=== PATIENT | male | born 1935 | race Caucasian/White ===

== ENCOUNTER 2018-06-25 04:31 | Inpatient (IN) ==
--- NOTE | 2018-06-25 05:23 | ED ---
HPI General Chief Complaint: Respiratory Symptoms Stated Complaint: Cardiac Time Seen by Provider: 06/25/18 05:22 Source: patient Mode of arrival: ambulatory Limitations: no limitations History of Present Illness MD Complaint: Reports shortness of breath; Denies pain with inspiration and chest pain Onset (ago): week(s) (1) Context: Reports recent travel; Denies recent illness, occurred during exertion , choking/aspiration, medication noncompliance, allergen exposure, smoke/fume exposure, anxiety, trauma/injury, elevated blood glucose and CO exposure Severity: moderate Consistency/Duration: constant Relieving factors: nothing Exacerbating factors: lying flat, exertion, movement and coughing Known history of: Denies congestive heart failure, diabetes, recurrent pneumonia , aspiration pneumonia, DVT and IVDU Related Data Home Medications Medication Instructions Recorded Confirmed amlodipine 5 mg PO DAILY 06/25/18 06/25/18 apixaban [Eliquis] 2.5 mg PO BID 06/25/18 06/25/18 atorvastatin 10 mg PO DAILY 06/25/18 06/25/18 coenzyme Q10 [CoQ-10] 100 mg PO DAILY 06/25/18 06/25/18 finasteride 5 mg PO DAILY 06/25/18 06/25/18 metoprolol tartrate 25 mg PO BID 06/25/18 06/25/18 omeprazole 20 mg PO DAILY 06/25/18 06/25/18 terazosin 2 mg PO DAILY 06/25/18 06/25/18 trazodone 50 mg PO DAILY 06/25/18 06/25/18 Allergies Allergy/AdvReac Type Severity Reaction Status Date / Time No Known Allergies Allergy Verified 06/25/18 04:45 [facility] Medical History Medical History Afib (Acute) HTN (hypertension) (Acute) Heart attack (Acute) Hypercholesteremia (Acute) Surgical History Surgical History H/O aortic valve replacement (Acute) H/O kidney removal (Acute) History of mitral valve repair (Acute) S/P CABG x 2 (Acute) Social History Social History Substance History: No History of Abuse Second Hand Smoke Exposure: Yes Smoking Status: Never smoker How Often Do You Have a Drink Containing Alcohol: Never Recent Travel in [facility] within the Last 8 Weeks: No Recent Out of Country Travel within the Last 8 Weeks: No Immunization History Tetanus Immunization: <5 Years Course Initial Documented Vital Signs Temperature 99.1 F 06/25/18 04:45 Pulse Rate 48 L 06/25/18 04:45 Respiratory Rate 18 06/25/18 04:45 Blood Pressure 147/67 H 06/25/18 04:45 Pulse Oximetry 94 L 06/25/18 04:45 Last Documented Vital Signs Temperature 98.6 F 06/25/18 07:00 Pulse Rate 41 L 06/25/18 07:00 Respiratory Rate 18 06/25/18 07:00 Blood Pressure 186/79 H 06/25/18 07:00 Pulse Oximetry 95 06/25/18 07:00 Sign Out Sign Out Data: Patient Sign Out occurred on 06/25/18 at 06:14. Patient's care was discussed, and care was transferred from Perla Elizabeth MD to Jacob Sy MD. Sign Out Comment: Patient with history of atrial fibrillation recent evaluation by his sheet folder Dr. Mclean with reported negative cardiac workup including stress test February 2018 presents with progressively worsening exertional and rest dyspnea after recent long distance travel to [place]. Patient with history of atrial fibrillation identified to have regular bradycardic rhythm on metoprolol. Last updated by Perla Elizabeth MD at 06/25/18 05:56 Post-Handoff Eval: The patient is a 82-year-old male who was initially seen by Dr. Eilzabeth. The patient notes increasing shortness of breath over the last 48 hours, exertional dyspnea and orthopnea. The patient's chest x-ray reveals pulmonary edema versus right lower lobe infiltrate, troponin was elevated at 0.42, BNP was only elevated at 158, but patient has peripheral pitting edema with orthopnea and exertional dyspnea. The patient also has a history of previous CABG and valve repair. He is followed by his primary physician, Dr. Caldwell, and his sheet folder, Dr. Pugh. The patient was administer Lasix 40 mg intravenously. I doubt pulmonary embolism, the patient is currently anticoagulated with Eliquis for history of A. fib. However, patient had elevated troponin to 0.42 with minimally elevated BNP and recent travel, therefore, CT pulmonary angiogram was performed, no obvious central PE. Patient will require cardiac consultation. Heparin was not instituted as patient is currently anticoagulated with Eliquis, may benefit from evaluation by his sheet folder and gentle diuresis. As the patient's primary [facility] Dr[facility] I discussed the patient with Dr. Shah who agrees with admission. Medical Decision Making MDM Narrative Medical Screen Exam Complete: Yes Emergency Medical Condition: Yes Lab Data Result diagrams: 06/25/18 06:10 06/25/18 06:10 Lab Results 06/25/18 06/25/18 06/25/18 Range/Units 06:10 06:10 06:10 WBC 9.4 (4.0-11.0) th/mm3 RBC 4.24 L (4.50-5.90) mil/mm3 Hgb 13.0 (13.0-17.0) gm/dL Hct 38.9 L (39.0-51.0) % MCV 91.8 (80.0-100.0) fL MCH 30.8 (27.0-34.0) pg MCHC 33.5 (32.0-36.0) % RDW 14.6 (11.6-17.2) % Plt Count 130 L (150-450) th/mm3 MPV 9.3 (7.0-11.0) fL Neut % (Auto) 86.5 H (16.0-70.0) % Lymph % (Auto) 4.8 L (9.0-44.0) % Griggs % (Auto) 7.8 (0.0-8.0) % Eos % (Auto) 0.6 (0.0-4.0) % Baso % (Auto) 0.3 (0.0-2.0) % Neut # (Auto) 8.1 H (1.8-7.7) th/mm3 Lymph # (Auto) 0.4 L (1.0-4.8) th/mm3 Griggs # (Auto) 0.7 (0.0-0.9) th/mm3 Eos # (Auto) 0.1 (0.0-0.4) th/mm3 Baso # (Auto) 0.0 (0.0-0.2) th/mm3 WBC Differential . Differential Comment Auto diff final Sodium 141 (136-145) meq/L Potassium 4.0 (3.5-5.1) meq/L Chloride 109 H (98-107) meq/L Carbon Dioxide 22.3 (21.0-32.0) meq/L Anion Gap 10 (5-15) meq/L BUN 33 H (7-18) mg/dL Creatinine 1.59 H (0.60-1.30) mg/dL Estimated GFR 42 L (>89) mL/min Random Glucose 126 H (74-106) mg/dL Calcium 8.2 L (8.5-10.1) mg/dL Total Bilirubin 0.8 (0.2-1.0) mg/dL AST 45 H (15-37) U/L ALT 46 (12-78) U/L Alkaline Phosphatase 110 (45-117) U/L Troponin I 0.42 H (0.02-0.05) ng/mL B-Natriuretic Peptide 158 H (0-100) pg/mL Total Protein 7.1 (6.4-8.2) g/dL Albumin 3.8 (3.4-5.0) g/dL Imaging Data Radiologist's impression: Chest X-Ray 06/25/18 06:01 CONCLUSION: Right base consolidation or atelectasis. Chest CTA 06/25/18 08:10 CONCLUSION: 1. Negative for central pulmonary emboli 2. Mild compensated cardiomegaly with extensive coronary and aortic valvular calcifications 3. 1 cm nodule left midlung, nonspecific at this point. Follow-up CT scan in 3- 6 months would be of benefit to confirm Discharge Plan Discharge Disposition Patient Disposition: ED Admit(ED Internal Use Only) Discharge Condition Condition: Stable Discharge Order Discharge Orders: ED Use Only Admit Order (Routine); Ordered 06/25/18 Ordered By: Jacob Sy Discharge Details Diagnosis: Non-ST elevation HI (NSTEMI), CHF exacerbation Physicians Team ED Provider: Jacob Sy Primary Care Provider: Celestine Caldwell Attending Provider: Corina Shah Status ED Status: Admitted Patient
[2018-06-25 06:23] LABS: Baso % (Auto) 0.3 % (0.0-2.0); Eos # (Auto) 0.1 th/mm3 (0.0-0.4); Eos % (Auto) 0.6 % (0.0-4.0); Hematocrit 38.9 % (39.0-51.0); Lymph # (Auto) 0.4 th/mm3 (1.0-4.8); Lymph % (Auto) 4.8 % (9.0-44.0); Mean Corpuscular HGB Conc 33.5 % (32.0-36.0); Mean Corpuscular Hemoglobin 30.8 pg (27.0-34.0); Mean Corpuscular Volume 91.8 fL (80.0-100.0); Mean Platelet Volume 9.3 fL (7.0-11.0); Mono # (Auto) 0.7 th/mm3 (0.0-0.9); Mono % (Auto) 7.8 % (0.0-8.0); Neut # (Auto) 8.1 th/mm3 (1.8-7.7); Neut % (Auto) 86.5 % (16.0-70.0); Platelet Count 130 th/mm3 (150-450); Red Blood Count 4.24 mil/mm3 (4.50-5.90); Red Cell Distribution Width 14.6 % (11.6-17.2); White Blood Count 9.4 th/mm3 (4.0-11.0)
[2018-06-25 06:35] LABS: Albumin 3.8 g/dL (3.4-5.0); Anion Gap 10 meq/L (5-15); Aspartate Aminotransferase 45 U/L (15-37); Blood Urea Nitrogen 33 mg/dL (7-18); Calcium 8.2 mg/dL (8.5-10.1); Carbon Dioxide 22.3 meq/L (21.0-32.0); Chloride 109 meq/L (98-107); Glomerular Filtration Rate 42 mL/min (>89); Glucose,Random 126 mg/dL (74-106); Sodium 141 meq/L (136-145)
[2018-06-25 06:40] LABS: Alanine Aminotransferase 46 U/L (12-78); Alkaline Phosphatase 110 U/L (45-117); Total Protein 7.1 g/dL (6.4-8.2); Troponin I 0.42 ng/mL (0.02-0.05)
--- NOTE | 2018-06-25 07:04 | XR ---
EXAM DATE: 06/25/2018 6:20 AM EST AGE/SEX: 82 years / Male INDICATIONS: CHF. Patient states frequent dizzy spells. CLINICAL DATA: This is the patient's initial encounter. Patient reports that signs and symptoms have been present for 2 days and indicates a pain score of 0/10. MEDICAL/SURGICAL HISTORY: Congestive heart failure. CABG. COMPARISON: No prior exams available for comparison. FINDINGS: The patient is status post sternotomy. There are prosthetic valves in place. This increased density a t the right base. The left lung is clear. CONCLUSION: Right base consolidation or atelectasis. Electronically signed by: Dany Motta MD Board Certified Radiologist 06/25/2018 7:02 AM EST
[2018-06-25] MEDS ORDERED: Azithromycin Inj 500 MG in Sodium Chlor 0.9% Inj 250 ML IV.SIG ONE (07:05)
--- NOTE | 2018-06-25 09:04 | CT ---
EXAM DATE: 06/25/2018 8:57 AM EST AGE/SEX: 82 years / Male INDICATIONS: Short of breath. CLINICAL DATA: This is the patient's initial encounter. Patient reports that signs and symptoms have been present for 1 day and indicates a pain score of 0/10. MEDICAL/SURGICAL HISTORY: Hypertension. CABG. Nephrectomy, right. aortic valve replacement, mitral valve replacement RADIATION DOSE: 17.46 CTDI (mGy) COMPARISON: No prior exams available for comparison. TECHNIQUE: Volumetric scanning was performed using a multi-row detector CT scanner during bolus infu mariel of 50 ml Omnipaque 350 (iohexol) nonionic water-soluble contrast as a single exam dose. The pro a was post processed with a variety of visualization algorithms including full volume maximum intensi ty projection and sliding thin slab reformation. Using automated exposure control and adjustment of t he mA and/or kV according to patient size, radiation dose was kept as low as reasonably achievable to obtain optimal diagnostic quality images. DICOM format image data is available electronically for r eview and comparison. FINDINGS: Pulmonary Arteries: No filling defects are seen in the pulmonary arteries out to the subsegmental ve ssels. The left and right pulmonary arteries are normal in diameter. Small 1 cm nodule is seen in th e left upper lobe surrounded by what appears to be inflammatory changes suggesting this is more infla mmatory than neoplastic. Patient does have history of a right nephrectomy. No other suspicious lung nodules are seen. Trace effusion on the left. Mediastinum: There is no axillary or mediastinal adenopathy. Extensive aortic valvular calcification s and coronary artery calcifications are noted. There is mild compensated cardiomegaly. Multiple small gallstones are seen in a benign-appearing gallbladder. CONCLUSION: 1. Negative for central pulmonary emboli 2. Mild compensated cardiomegaly with extensive coronary and aortic valvular calcifications 3. 1 cm nodule left midlung, nonspecific at this point. Follow-up CT scan in 3-6 months would be of benefit to confirm Electronically signed by: Cuate Manuel MD Board Certified Radiologist 06/25/2018 9:02 AM EST
--- NOTE | 2018-06-25 09:46 | ECG ---
Date Performed: 06/25/2018 Time Performed: 05:09:46 PTAGE: 82 years EKG: PROBABLE AV JUNCTIONAL RHYTHM MARKED LEFT AXIS DEVIATION RIGHT BUNDLE BRANCH BLOCK VOLTAGE CRITERIA FOR LVH MODERATE T-WAVE ABNORMALITY, CONSIDER LATERAL ISCHEMIA ABNORMAL ECG NO PREVIOUS TRACING DOCTOR: Morro Shaw Interpretating Date/Time 06/25/2018 09:45:34
--- NOTE | 2018-06-25 11:10 | P.HPIM ---
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 Patient says he had nuclear stress test approx one month ago which was negative. He presents with complaints of shortness of breath and chest tightness that occurs occasionally over the past couple of months. 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 He does not have any symptoms while at rest. He follow up with Dr. Mclean. He denies any palpitation or active chest pain. No fevers, or chills , no cough, no abd pain or diarrhea. Fam hx no significant family hx as per patient. Inpatient Certification: I certify that the inpatient services were ordered in accordance with Medicare regulations governing the order. This includes certification that hospital inpatient services are reasonable and necessary and in the case of services not specified as inpatient-only under 42 CFR 419.22(n), that they are appropriately provided as inpatient services in accordance to with the 2-midnight benchmark under 43 CFR 412.3(e) Estimated Total Length of Stay (Days): 2 Plans for Post Hospital Care: Home Review of Systems All other systems reviewed negative except as stated in HPI PMFSH - History History Provided By: Patient - Medical History Medical History: Medical History (Last Updated 06/25/18 @ 04:49 by Kendy Connolly) Afib HTN (hypertension) Heart attack Hypercholesteremia - Surgical History Surgical History: Surgical History (Last Updated 06/25/18 @ 04:49 by Kendy Connolly) H/O aortic valve replacement H/O kidney removal History of mitral valve repair S/P CABG x 2 - Tobacco History Second Hand Smoke Exposure: Yes Smoking Status: Never smoker - Alcohol History How Often Do You Have a Drink Containing Alcohol: Never - Substance Use History Substance History: No History of Abuse - Travel History Recent Travel in the [place] Within the Last 8 Weeks: No Recent Travel Out of the Country Within the Last 8 Weeks: No - Immunization History Tetanus Immunization: <5 Years Medications and Allergies Active Medications: Active Medications Amlodipine Besylate (Norvasc) 5 mg PO DAILY JEANETTE Apixaban (Eliquis) 2.5 mg PO BID JEANETTE Aspirin (Aspirin Chew) 81 mg PO DAILY [facility] Atorvastatin Calcium (Lipitor) 40 mg PO HS JEANETTE Finasteride (Proscar) 5 mg PO DAILY EJANETTE Pantoprazole Sodium (Protonix) 20 mg PO DAILY JEANETTE Terazosin HCl (Hytrin) 2 mg PO HS JEANETTE Trazodone HCl (Desyrel) 50 mg PO HS [facility] Allergies Allergy/AdvReac Type Severity Reaction Status Date / Time No Known Allergies Allergy Verified 06/25/18 04:45 Home Medications Medication Instructions Recorded Confirmed Type amlodipine 5 mg PO DAILY 06/25/18 06/25/18 History apixaban [Eliquis] 2.5 mg PO BID 06/25/18 06/25/18 History atorvastatin 10 mg PO DAILY 06/25/18 06/25/18 History coenzyme Q10 [CoQ-10] 100 mg PO DAILY 06/25/18 06/25/18 History finasteride 5 mg PO DAILY 06/25/18 06/25/18 History metoprolol tartrate 25 mg PO BID 06/25/18 06/25/18 History omeprazole 20 mg PO DAILY 06/25/18 06/25/18 History terazosin 2 mg PO DAILY 06/25/18 06/25/18 History trazodone 50 mg PO DAILY 06/25/18 06/25/18 History Exam Vital signs: Vital Signs 06/25/18 04:45 06/25/18 04:50 06/25/18 06:18 Temperature 99.1 F Pulse Rate 48 L 55 L Respiratory Rate 18 20 Blood Pressure 147/67 H 140/97 H Pulse Oximetry 94 L 95 95 06/25/18 06:26 06/25/18 07:00 Temperature 98.6 F Pulse Rate 41 L 41 L Respiratory Rate 18 Blood Pressure 186/79 H Pulse Oximetry 95 Intake & Output 06/24/18 06/25/18 06/25/18 18:59 06:59 18:59 Intake Total 350 / 350 Output Total 1150 / 1150 Balance -800 / -800 Weight 80.739 kg Intake: IV 350 / 350 Azithromycin Inj 500 MG In NS 250 / 250 Inj 250 ML @ 250 mls/hr IV.SIG ONCE ONE Rx#:[id number] Rocephin Inj 1,000 MG In NS Inj 100 / 100 100 ML @ 200 mls/hr IV.SIG ONCE ONE Rx#:[id number] Output: Urine 1150 / 1150 Narrative: Alert and oriented x 3 No JVD S1S2 CTA b/l abd soft, nontender, normal bowel sounds 1-2+ pitting edema of b/l lower exts up to the shins. Results - Labs CBC & Chem 7: 06/25/18 06:10 06/25/18 06:10 Labs: Short CBC 06/25/18 Range/Units 06:10 WBC 9.4 (4.0-11.0) th/mm3 Hgb 13.0 (13.0-17.0) gm/dL Hct 38.9 L (39.0-51.0) % Plt Count 130 L (150-450) th/mm3 BMP 06/25/18 06:10 Sodium 141 Potassium 4.0 Chloride 109 H Carbon Dioxide 22.3 BUN 33 H Creatinine 1.59 H Calcium 8.2 L Cardiac Enzymes 06/25/18 Range/Units 06:10 Troponin I 0.42 H (0.02-0.05) ng/mL Liver Function 06/25/18 Range/Units 06:10 Total Bilirubin 0.8 (0.2-1.0) mg/dL AST 45 H (15-37) U/L ALT 46 (12-78) U/L Alkaline Phosphatase 110 (45-117) U/L Albumin 3.8 (3.4-5.0) g/dL - Imaging Impressions Chest X-Ray 06/25/18 06:01 CONCLUSION: Right base consolidation or atelectasis. Chest CTA 06/25/18 08:10 CONCLUSION: 1. Negative for central pulmonary emboli 2. Mild compensated cardiomegaly with extensive coronary and aortic valvular calcifications 3. 1 cm nodule left midlung, nonspecific at this point. Follow-up CT scan in 3- 6 months would be of benefit to confirm Caprini VTE Risk Assessment Caprini VTE Risk Assessment: Moderate/High Risk (score >= 2) Caprini Risk Assessment Model: Point Value = 1 Point Value = 2 Point Value = 3 Point Value = 5 Age 41-60 Minor surgery BMI > 25 kg/m2 Swollen legs Varicose veins or History of unexplained or recurrent spontaneous Oral contraceptives or hormone replacement Sepsis (< 1 month) Serious lung disease, including pneumonia (< 1 month) Abnormal pulmonary function Acute myocardial infarction Congestive heart failure (< 1 month) History of inflammatory bowel disease Medical patient at bed rest Age 61-74 Arthroscopic surgery Major open surgery (> 45 min) Laparoscopic surgery (> 45 min) Malignancy Confined to bed (> 72 hours) Immobilizing plaster cast Central venous access Age >= 75 History of VTE Family history of VTE Factor V Leiden Prothrombin [id number] Lupus anticoagulant Anticardiolipin antibodies Elevated serum homocysteine Heparin-induced thrombocytopenia Other congenital or acquired thrombophilia Stroke (< 1 month) Elective arthroplasty Hip, pelvis, or leg fracture Acute spinal cord injury (< 1 month) Prophylaxis Regimen: Total Risk Factor Score Risk Level Prophylaxis Regimen 0-1 Low Early ambulation 2 Moderate Order ONE of the following: *Sequential Compression Device (SCD) *Heparin 5000 units SQ BID 3-4 Higher Order ONE of the following medications: *Heparin 5000 units SQ TID *Enoxaparin/Lovenox 40 mg SQ daily (WT < 150 kg, CrCl > 30 mL/min) *Enoxaparin/Lovenox 30 mg SQ daily (WT < 150 kg, CrCl > 10-29 mL/min) *Enoxaparin/Lovenox 30 mg SQ BID (WT < 150 kg, CrCl > 30 mL/min) AND/OR *Sequential Compression Device (SCD) 5 or more Highest Order ONE of the following medications: *Heparin 5000 units SQ TID (Preferred with Epidurals) *Enoxaparin/Lovenox 40 mg SQ daily (WT < 150 kg, CrCl > 30 mL/min) *Enoxaparin/Lovenox 30 mg SQ daily (WT < 150 kg, CrCl > 10-29 mL/min) *Enoxaparin/Lovenox 30 mg SQ BID (WT < 150 kg, CrCl > 30 mL/min) AND *Sequential Compression Device (SCD) Assessment and Plan - Plan This patient is an 82 y/o male with a dx of a fib on eliquis, cad s/p cabg x 2, 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 Patient says he had nuclear stress test approx one month ago which was negative. He presents with complaints of shortness of breath and chest tightness that occurs occasionally over the past couple of months. 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 He does not have any symptoms while at rest. He follow up with Dr. Mclean. He denies any palpitation or active chest pain. No fevers, or chills , no cough, no abd pain or diarrhea. 1. Chest pain, possible NSTEMI 2. CHF exacerbation unknow EF Patient presents with symptoms mentioned above. EKG shows a fib, HR 40s, Right bundle branch block. ST depression in inf leads. I do not see a previous ekg for comparison. Patient given Aspirin in the ED, continue aspirin, statin, no bb due to bradycardia Continue Eliquis. Will consult Dr. Mclaen to evaluate the patient CXR shows a right lower lobe consolidatoin, no cough, i do not believe the pt has pna. Possible pulm vasc congestion, BNP slightly elevated 158. Patient given a dose of lasix in ed. patient does have 2+ pitting edema of b/l lower exts. Will monitor and give more lasix if needed. 2decho ordered. Monitor on telemetry. Follow up repeat troponins. Follow up recs from Cardiology. If troponin is uptrending will start Heparin gtt. 3. HTN Continue home meds for htn. Continue to monitor and adjust as needed. DVT prophylaxis, pt currently on Eliquis.
[2018-06-25 12:46] LABS: Troponin I 0.4 ng/mL (0.02-0.05)
--- NOTE | 2018-06-25 13:46 | P.CONCA ---
History of Present Illness Service: Cardiology Consult date: 06/25/18 Reason for Consult: Elevated troponin, chest tightness Primary Care Provider: Celestine Caldwell MD Chief Complaint: SOB History of Present Illness: Pleasant 82-year-old male well-known to our practice with a significant past cardiac history of ASHD status post CA and CABG x2 in 2004, aortic stenosis status post valve replacement with a bovine Gandhi valve in 1984 and 2005, mitral stenosis status post valve annuloplasty ring with a #28 Gandhi ring in 2005, atrial fibrillation anticoagulated with Eliquis has been evaluated by Dr. Marie in the past, abnormal EKG with right bundle branch block and left anterior fascicular block, hypertension, hyperlipidemia, GERD, renal cancer status post left nephrectomy followed by Dr. Jerry, and history of severe GI bleed in 2012. Patient reports that he has been short of breath off and on for the past year however he was recently visiting family in [place] and reports feeling well until yesterday in the airport. He reports he was carrying a small carry on bag across the airport had significant shortness of breath and fatigue which would usually resolve after sitting and resting for a while. He reports his symptoms did not resolve and he decided to come to the ER for further evaluation. Today he reports that he continues to have extreme fatigue and shortness of breath with minimal movement. CTA ruled out PE. Troponin mildly elevated, flat, could be secondary to renal insufficiency. Patient denies any chest pain. No signs of fluid overload on exam. He did have a negative cardiac PET scan in February 2018. Last echo was March 2018 showed a EF of 57% ADOLPH =1.62 cm, AV max peak gradient 22 mmHg, MVA =1.7 cm. Review of Systems All other systems reviewed negative except as stated in [facility]PI [facility] - History History Provided By: Patient - Medical History Medical History: Medical History (Last Reviewed 06/26/18 @ 11:52 by Robin Parish) Afib HTN (hypertension) Heart attack Hypercholesteremia - Surgical History Surgical History: Surgical History (Last Reviewed 06/26/18 @ 11:52 by Robin Parish) H/O aortic valve replacement H/O kidney removal History of mitral valve repair S/P CABG x 2 - Tobacco History Second Hand Smoke Exposure: Yes Smoking Status: Never smoker - Alcohol History How Often Do You Have a Drink Containing Alcohol: Never - Substance Use History Substance History: No History of Abuse - Travel History Recent Travel in the [place] Within the Last 8 Weeks: No Recent Travel Out of the Country Within the Last 8 Weeks: No - Immunization History Tetanus Immunization: <5 Years Medications and Allergies Allergies Allergy/AdvReac Type Severity Reaction Status Date / Time No Known Allergies Allergy Verified 06/25/18 04:45 Home Medications Medication Instructions Recorded Confirmed Type amlodipine 5 mg PO DAILY 06/25/18 06/25/18 History apixaban [Eliquis] 2.5 mg PO BID 06/25/18 06/25/18 History atorvastatin 10 mg PO DAILY 06/25/18 06/25/18 History coenzyme Q10 [CoQ-10] 100 mg PO DAILY 06/25/18 06/25/18 History finasteride 5 mg PO DAILY 06/25/18 06/25/18 History metoprolol tartrate 25 mg PO BID 06/25/18 06/25/18 History omeprazole 20 mg PO DAILY 06/25/18 06/25/18 History terazosin 2 mg PO DAILY 06/25/18 06/25/18 History trazodone 50 mg PO DAILY 06/25/18 06/25/18 History Active Medications: Active Medications Amlodipine Besylate (Norvasc) 5 mg PO DAILY JEANETTE Amlodipine Besylate (Norvasc) 5 mg PO ONCE ONE Stop: 06/25/18 13:19 Apixaban (Eliquis) 2.5 mg PO BID JEANETTE Aspirin (Aspirin Chew) 81 mg PO DAILY JEANETTE Atorvastatin Calcium (Lipitor) 40 mg PO HS JEANETTE Finasteride (Proscar) 5 mg PO DAILY JEANETTE Pantoprazole Sodium (Protonix) 20 mg PO DAILY JEANETTE Terazosin HCl (Hytrin) 2 mg PO HS JEANETTE Trazodone HCl (Desyrel) 50 mg PO HS JEANETTE Exam Vital signs: Vital Signs 06/25/18 04:45 06/25/18 04:50 06/25/18 06:18 Temperature 99.1 F Pulse Rate 48 L 55 L Respiratory Rate 18 20 Blood Pressure 147/67 H 140/97 H Pulse Oximetry 94 L 95 95 06/25/18 06:26 06/25/18 07:00 06/25/18 11:12 Temperature 98.6 F Pulse Rate 41 L 40 L 43 L Respiratory Rate 18 16 Blood Pressure 186/79 H 174/72 H Pulse Oximetry 95 98 06/25/18 12:00 Temperature Pulse Rate 41 L Respiratory Rate Blood Pressure Pulse Oximetry Intake & Output 06/24/18 06/25/18 06/25/18 18:59 06:59 18:59 Intake Total 350 / 350 Output Total 1700 / 1700 Balance -1350 / -1350 Weight 80.739 kg Intake: IV 350 / 350 Azithromycin Inj 500 MG In NS 250 / 250 Inj 250 ML @ 250 mls/hr IV.SIG ONCE ONE Rx#:[id number] Rocephin Inj 1,000 MG In NS Inj 100 / 100 100 ML @ 200 mls/hr IV.SIG ONCE ONE Rx#:[id number] Output: Urine 1700 / 1700 - Constitutional no acute distress, average body habitus - Routine HEENT Exam Head: Present: normocephalic, atraumatic Eye: Present: EOMI, PERRL, normal accommodation ENT: Present: mucous membranes moist - Routine Neck Exam Present: supple - Routine Respiratory Exam Present: CTA bilaterally - Routine Cardiovascular Exam Present: bradycardia - Routine Abdominal Exam Present: soft - Routine Extremities Exam Present: full ROM, pulses intact, normal capillary refill - Routine Skin Exam Present: intact - Routine Neurological Exam Present: alert, oriented X3 Results 06/25/18 06:10 06/25/18 22:35 Cardiac Enzymes 06/25/18 06/25/18 06/25/18 Range/Units 06:10 06:10 11:52 AST 45 H (15-37) U/L Troponin I 0.42 H 0.40 H (0.02-0.05) ng/mL B-Natriuretic Peptide 158 H (0-100) pg/mL Coagulation 06/25/18 Range/Units 06:10 B-Natriuretic Peptide 158 H (0-100) pg/mL CBC 06/25/18 Range/Units 06:10 WBC 9.4 (4.0-11.0) th/mm3 RBC 4.24 L (4.50-5.90) mil/mm3 Hgb 13.0 (13.0-17.0) gm/dL Hct 38.9 L (39.0-51.0) % Plt Count 130 L (150-450) th/mm3 Neut # (Auto) 8.1 H (1.8-7.7) th/mm3 Lymph # (Auto) 0.4 L (1.0-4.8) th/mm3 [place] # (Auto) 0.7 (0.0-0.9) th/mm3 Eos # (Auto) 0.1 (0.0-0.4) th/mm3 Baso # (Auto) 0.0 (0.0-0.2) th/mm3 Comprehensive Metabolic Panel 06/25/18 Range/Units 06:10 Sodium 141 (136-145) meq/L Potassium 4.0 (3.5-5.1) meq/L Chloride 109 H (98-107) meq/L Carbon Dioxide 22.3 (21.0-32.0) meq/L BUN 33 H (7-18) mg/dL Creatinine 1.59 H (0.60-1.30) mg/dL Calcium 8.2 L (8.5-10.1) mg/dL AST 45 H (15-37) U/L ALT 46 (12-78) U/L Alkaline Phosphatase 110 (45-117) U/L Total Protein 7.1 (6.4-8.2) g/dL Albumin 3.8 (3.4-5.0) g/dL Intake and Output 06/24/18 06/25/18 06/25/18 22:59 06:59 14:59 Intake Total 350 / 350 Output Total 1700 / 1700 Balance -1350 / -1350 Intake: IV 350 / 350 Azithromycin Inj 500 MG In NS 250 / 250 Inj 250 ML @ 250 mls/hr IV.SIG ONCE ONE Rx#:[id number] Rocephin Inj 1,000 MG In NS Inj 100 / 100 100 ML @ 200 mls/hr IV.SIG ONCE ONE Rx#:[id number] Output: Urine 1700 / 1700 Other: Weight 80.739 kg - Imaging and Cardiology Imaging: Impressions Chest X-Ray 06/25/18 06:01 CONCLUSION: Right base consolidation or atelectasis. Chest CTA 06/25/18 08:10 CONCLUSION: 1. Negative for central pulmonary emboli 2. Mild compensated cardiomegaly with extensive coronary and aortic valvular calcifications 3. 1 cm nodule left midlung, nonspecific at this point. Follow-up CT scan in 3- 6 months would be of benefit to confirm Assessment and Plan - Plan Assessment Elevated troponin Shortness of breath New LBBB Bradycardia ASHD Aortic stenosis Mitral stenosis Carotid stenosis Atrial fibrillation Renal insufficiency, status post left nephrectomy Plan -Troponin mildly elevated, remains flat, could be secondary to renal insufficiency. -Patient reports wheezing, and shortness of breath off and on over the past year , with symptoms being worse yesterday and today. CTA ruled out PE, did show 1 cm nodule left midlung, nonspecific at this point. Follow-up CT scan in 3-6 months recommended. Will order albuterol nebulizer treatments. -New LBBB, heart cath discussed in detail with patient and family. Pt is at increased risk due to renal insuf. -EKG shows bradycardia, rates in the 40s with junctional rhythm. We will hold off on any beta-blockers at this time. -Moderate left-sided carotid stenosis unable to complete CTA due to history of nephrectomy and renal insufficiency. Last carotid ultrasound was completed March 2018 with an estimated 50-69% left-sided stenosis. -Continues on Eliquis 2.5 mg PO BID. -History of renal cancer status post left nephrectomy, creatinine 1.[address] Jerry. Patient was seen and evaluated by Dr. Mclean who participated in care management decision making. The exam, history, and the medical decision-making described in the above note were completed with the assistance of the mid-level provider. I reviewed and agree with the findings presented. I attest that I had a [id number] encounter with the patient on the same day, and personally performed and documented my assessment and findings in the medical record. cxray and clinical symptoms suggestive of pneumonia, possible mild chf secondary to a slow hr, will discontinue betablocker. Discussed Condition With: Dr. Mclean
[2018-06-25] MEDS ORDERED: amLODIPine 5 MG Tablet PO ONE (14:00)
[2018-06-25] MEDS ORDERED: RESP: Albuterol Concentrated 2.5 MG/0.5 ML Neb NEB ONE (14:00)
[2018-06-25 17:02] LABS: Troponin I 0.39 ng/mL (0.02-0.05)
[2018-06-25] MEDS: traZODone 50 MG Tablet PO SCH (21:02)
[2018-06-25 23:22] LABS: Anion Gap 8 meq/L (5-15); Blood Urea Nitrogen 35 mg/dL (7-18); Calcium 8.1 mg/dL (8.5-10.1); Carbon Dioxide 25.1 meq/L (21.0-32.0); Chloride 104 meq/L (98-107); Glomerular Filtration Rate 33 mL/min (>89); Glucose,Random 131 mg/dL (74-106); Potassium 3.5 meq/L (3.5-5.1); Sodium 137 meq/L (136-145)
[2018-06-25 23:26] LABS: Creatine Kinase 211 U/L (39-308); Troponin I 0.48 ng/mL (0.02-0.05)
[2018-06-25 23:39] LABS: Creatine Kinase MB 1.6 ng/mL (0.5-3.6)
[2018-06-26] MEDS: Finasteride 5 MG Tablet PO SCH (08:35)
[2018-06-26] MEDS: Pantoprazole Sodium 20 MG DR Tablet PO SCH (08:36)
[2018-06-26] MEDS ORDERED: amLODIPine 5 MG Tablet PO SCH (09:00)
--- NOTE | 2018-06-26 10:17 | P.PNCA ---
Subjective Interval history: Patient reports feeling much better this AM, breathing has improved significantly. He denies any chest pain. The exam, history, and the medical decision-making described in the above note were completed with the assistance of the mid-level provider. I reviewed and agree with the findings presented. I attest that I had a [id number] encounter with the patient on the same day, and personally performed and documented my assessment and findings in the medical record. Feels better today Medications and Allergies Allergies Allergy/AdvReac Type Severity Reaction Status Date / Time No Known Allergies Allergy Verified 06/25/18 04:45 Home Medications Medication Instructions Recorded Confirmed Type apixaban [Eliquis] 2.5 mg PO BID 06/25/18 06/25/18 History coenzyme Q10 [CoQ-10] 100 mg PO DAILY 06/25/18 06/25/18 History finasteride 5 mg PO DAILY 06/25/18 06/25/18 History omeprazole 20 mg PO DAILY 06/25/18 06/25/18 History terazosin 2 mg PO DAILY 06/25/18 06/25/18 History trazodone 50 mg PO DAILY 06/25/18 06/25/18 History Active Medications: Active Medications Albuterol (Albuterol Neb (Prn)) 2.5 mg NEB Q6HR NEB PRN PRN Reason: SHORTNESS OF BREATH/WHEEZING Last Admin: 06/26/18 00:24 Dose: 2.5 mg Amlodipine Besylate (Norvasc) 5 mg PO DAILY [facility] Last Admin: 06/26/18 08:36 Dose: 5 mg Apixaban (Eliquis) 2.5 mg PO BID [facility] Last Admin: 06/26/18 08:36 Dose: 2.5 mg Aspirin (Aspirin Chew) 81 mg PO DAILY [facility] Last Admin: 06/26/18 08:36 Dose: 81 mg Atorvastatin Calcium (Lipitor) 40 mg PO HS [facility] Last Admin: 06/25/18 21:02 Dose: 40 mg Finasteride (Proscar) 5 mg PO DAILY [facility] Last Admin: 06/26/18 08:35 Dose: 5 mg Pantoprazole Sodium (Protonix) 20 mg PO DAILY [facility] Last Admin: 06/26/18 08:36 Dose: 20 mg Terazosin HCl (Hytrin) 2 mg PO [facility] Last Admin: 01/02/19 21:03 Dose: 2 mg Trazodone HCl (Desyrel) 50 mg PO HS [facility] Last Admin: 06/25/18 21:02 Dose: 50 mg Physical Exam Vital signs: Vital Signs 06/25/18 11:12 06/25/18 12:00 06/25/18 14:15 Temperature Pulse Rate 43 L 41 L Respiratory Rate 16 Blood Pressure 174/72 H Pulse Oximetry 98 96 06/25/18 14:16 06/25/18 15:00 06/25/18 20:00 Temperature 98.2 F Pulse Rate 44 L 48 L 49 L Respiratory Rate 15 18 20 Blood Pressure 169/76 H 169/74 H Pulse Oximetry 97 98 06/26/18 00:05 06/26/18 00:28 06/26/18 00:29 Temperature Pulse Rate 48 L 55 L Respiratory Rate 26 H Blood Pressure Pulse Oximetry 93 L 06/26/18 01:26 06/26/18 02:41 06/26/18 04:00 Temperature 98.5 F 100.1 F H 99 F Pulse Rate 47 L 48 L 46 L Respiratory Rate 22 20 20 Blood Pressure 180/76 H 142/64 H 132/59 L Pulse Oximetry 93 L 92 L 92 L 06/26/18 04:05 06/26/18 08:00 06/26/18 09:42 Temperature 99.3 F Pulse Rate 45 L 44 L Respiratory Rate 18 Blood Pressure 150/64 H Pulse Oximetry 93 L 93 L Intake & Output 06/25/18 06/26/18 06/26/18 18:59 06:59 18:59 Intake Total 350 / 350 720 / 720 Output Total 1999 1200 / 1200 Balance -1650 / -1650 -480 / -480 Weight 82.6 kg Intake: IV 350 / 350 Azithromycin Inj 500 MG In NS 250 / 250 Inj 250 ML @ 250 mls/hr IV.SIG ONCE ONE Rx#:[id number] Rocephin Inj 1,000 MG In NS Inj 100 / 100 100 ML @ 200 mls/hr IV.SIG ONCE ONE Rx#:[id number] Oral 720 / 720 Other 0 / 0 Output: Urine 1999 1200 / 1200 Other: # Voids 3 Date of Last Bowel Movement 06/24/18 Weight On Admission 82.6 kg - Constitutional no acute distress, average body habitus - Routine HEENT Exam Head: Present: normocephalic, atraumatic Eye: Present: EOMI, PERRL, normal accommodation ENT: Present: mucous membranes moist - Routine Neck Exam Present: supple - Routine Respiratory Exam Present: CTA bilaterally - Routine Cardiovascular Exam Present: bradycardia, irregular rhythm - Routine Abdominal Exam Present: soft - Routine Skin Exam Present: intact - Routine Neurological Exam Present: alert, oriented X3 - Detailed Neurological Exam: Coma Scale Eye Opening: Spontaneous Verbal Response: Oriented Motor Response: Obey commands Edwin Coma Scale Total: 15 - Routine Psychiatric Exam Present: normal affect Results 06/28/18 07:10 06/28/18 07:10 Cardiac Enzymes 06/25/18 06/25/18 06/25/18 Range/Units 06:10 06:10 11:52 AST 45 H (15-37) U/L CK-MB (CK-2) (0.5-3.6) ng/mL Troponin I 0.42 H 0.40 H (0.02-0.05) ng/mL B-Natriuretic Peptide 158 H (0-100) pg/mL 06/25/18 06/25/18 Range/Units 16:25 22:35 AST (15-37) U/L CK-MB (CK-2) 1.6 (0.5-3.6) ng/mL Troponin I 0.39 H 0.48 H (0.02-0.05) ng/mL B-Natriuretic Peptide (0-100) pg/mL Coagulation 06/25/18 Range/Units 06:10 B-Natriuretic Peptide 158 H (0-100) pg/mL CBC 06/25/18 Range/Units 06:10 WBC 9.4 (4.0-11.0) th/mm3 RBC 4.24 L (4.50-5.90) mil/mm3 Hgb 13.0 (13.0-17.0) gm/dL Hct 38.9 L (39.0-51.0) % Plt Count 130 L (150-450) th/mm3 Neut # (Auto) 8.1 H (1.8-7.7) th/mm3 Lymph # (Auto) 0.4 L (1.0-4.8) th/mm3 [place] # (Auto) 0.7 (0.0-0.9) th/mm3 Eos # (Auto) 0.1 (0.0-0.4) th/mm3 Baso # (Auto) 0.0 (0.0-0.2) th/mm3 Comprehensive Metabolic Panel 06/25/18 06/25/18 Range/Units 06:10 22:35 Sodium 141 137 (136-145) meq/L Potassium 4.0 3.5 (3.5-5.1) meq/L Chloride 109 H 104 (98-107) meq/L Carbon Dioxide 22.3 25.1 (21.0-32.0) meq/L BUN 33 H 35 H (7-18) mg/dL Creatinine 1.59 H 1.97 H (0.60-1.30) mg/dL Calcium 8.2 L 8.1 L (8.5-10.1) mg/dL AST 45 H (15-37) U/L ALT 46 (12-78) U/L Alkaline Phosphatase 110 (45-117) U/L Total Protein 7.1 (6.4-8.2) g/dL Albumin 3.8 (3.4-5.0) g/dL Intake and Output 06/25/18 06/26/18 06/26/18 22:59 06:59 14:59 Intake Total 0 / 0 720 / 720 Output Total 300 / 300 1200 / 1200 Balance -300 / -300 -480 / -480 Intake: Oral 720 / 720 Other 0 / 0 Output: Urine 300 / 300 1200 / 1200 Other: # Voids 3 Date of Last Bowel Movement 06/24/18 Weight 82.6 kg Weight On Admission 82.6 kg - Imaging and Cardiology Imaging: Impressions Chest X-Ray 06/25/18 06:01 CONCLUSION: Right base consolidation or atelectasis. Chest CTA 06/25/18 08:10 CONCLUSION: 1. Negative for central pulmonary emboli 2. Mild compensated cardiomegaly with extensive coronary and aortic valvular calcifications 3. 1 cm nodule left midlung, nonspecific at this point. Follow-up CT scan in 3- 6 months would be of benefit to confirm Assessment and Plan - Plan Assessment Elevated troponin Shortness of breath New LBBB Bradycardia ASHD Aortic stenosis Mitral stenosis Carotid stenosis Atrial fibrillation Renal insufficiency, status post left nephrectomy Plan -Troponin mildly elevated, suspect it is secondary to renal insufficiency. -CTA ruled out PE, did show 1 cm nodule left midlung, nonspecific at this point. Follow-up CT scan in 3-6 months recommended.Patient reports breathing has improved with nebulizer treatments. -New LBBB,rate related. Heart cath discussed in detail with patient and family. Pt is at increased risk due to renal insuf. He is not having any chest pain. Will hold off at this time -EKG shows bradycardia, LBBB, rates in the 40s with junctional rhythm. We will hold off on any beta-blockers at this time. Discussed he may need a pacemaker down the road. -Moderate left-sided carotid stenosis unable to complete CTA due to history of nephrectomy and renal insufficiency. Last carotid ultrasound was completed March 2018 with an estimated 50-69% left-sided stenosis. -Continues on Eliquis 2.5 mg PO BID. -History of renal cancer status post left nephrectomy, creatinine increased to 1.97 today consult placed to Dr. Jerry for evaluation. Patient was seen and evaluated by Dr. Mclean who participated in care management decision making. Discussed Condition With: Dr. Mclean
--- NOTE | 2018-06-26 15:02 | ECG ---
Date Performed: 06/25/2018 Time Performed: 11:54:32 PTAGE: 82 years EKG: ATRIAL FLUTTER/TACHYCARDIA WITH SLOW VENTRICULAR RESPONSE WITH ABERRANT CONDUCTION OR VENTR ICULAR PREMATURE COMPLEXES LEFT BUNDLE BRANCH BLOCK HIGH GRADE AV BLOCK WITH POSSIBLE A-V DISSOCIATIO N ABNORMAL ECG Compared to PREVIOUS TRACING , a left bundle branch block is new. There has been some variation in th e T-wave changes, but no other significant serial change. PREVIOUS TRACIN06/25/2018 05.09 DOCTOR: Adele Bess Interpretating Date/Time 06/26/2018 15:01:09
--- NOTE | 2018-06-26 15:14 | ECG ---
Date Performed: 06/25/2018 Time Performed: 15:38:04 PTAGE: 82 years EKG: PROBABLE ATRIAL FIBRILLATION WITH HIGH-GRADE AV BLOCK OR AV DISSOCIATION LEFT BUNDLE BRANCH BLOCK ABNORMAL ECG Compared to PREVIOUS TRACING , there has been no significant serial change except the left bundle bra nch block is variable and may be rate-related. PREVIOUS TRACIN06/25/2018 11.54 DOCTOR: Adele Bess Interpretating Date/Time 06/26/2018 15:12:59
--- NOTE | 2018-06-26 15:18 | ECG ---
Date Performed: 06/25/2018 Time Performed: 21:44:51 PTAGE: 82 years EKG: ATRIAL FLUTTER/TACHYCARDIA WITH SLOW VENTRICULAR RESPONSE WITH ABERRANT CONDUCTION OR VENTR ICULAR PREMATURE COMPLEXES MARKED LEFT AXIS DEVIATION LEFT BUNDLE BRANCH BLOCK ABNORMAL ECG Compared to PREVIOUS TRACING , there has been further improvement in the ventricular response to the atrial fibrillation. Occasional PVCs are still noted. Probably, however, there has been no significan t serial change in the findings for the LBBB, remains intermittent. Clinical correlation remains impo rtant as there is still a relatively slow ventricular response to what appears to be atrial fibrillat ion. PREVIOUS TRACIN06/25/2018 15.38 DOCTOR: Adele Bess Interpretating Date/Time 06/26/2018 15:16:31
[2018-06-26] MEDS ORDERED: amLODIPine 5 MG Tablet PO ONE (15:30)
--- NOTE | 2018-06-26 15:43 | P.PNIM ---
Subjective Interval history: Patient is laying down currently and says he is comfortable. No complaints of chest pain, no palpitations, shortness of breath. Physical Exam Vital signs: Vital Signs 06/25/18 20:00 06/26/18 00:05 06/26/18 00:28 Temperature 98.2 F Pulse Rate 49 L 48 L 55 L Respiratory Rate 20 26 H Blood Pressure 169/74 H Pulse Oximetry 98 06/26/18 00:29 06/26/18 01:26 06/26/18 02:41 Temperature 98.5 F 100.1 F H Pulse Rate 47 L 48 L Respiratory Rate 22 20 Blood Pressure 180/76 H 142/64 H Pulse Oximetry 93 L 93 L 92 L 06/26/18 04:00 06/26/18 04:05 06/26/18 08:00 Temperature 99 F 99.3 F Pulse Rate 46 L 45 L 44 L Respiratory Rate 20 18 Blood Pressure 132/59 L 150/64 H Pulse Oximetry 92 L 93 L 06/26/18 09:42 06/26/18 12:00 Temperature 99.1 F Pulse Rate 42 L Respiratory Rate 18 Blood Pressure 149/66 H Pulse Oximetry 93 L 91 L Intake & Output 06/25/18 06/26/18 06/26/18 18:59 06:59 18:59 Intake Total 350 / 350 720 / 720 Output Total 1999 1200 / 1200 Balance -1650 / -1650 -480 / -480 Weight 82.6 kg Intake: IV 350 / 350 Azithromycin Inj 500 MG In NS 250 / 250 Inj 250 ML @ 250 mls/hr IV.SIG ONCE ONE Rx#:[id number] Rocephin Inj 1,000 MG In NS Inj 100 / 100 100 ML @ 200 mls/hr IV.SIG ONCE ONE Rx#:[id number] Oral 720 / 720 Other 0 / 0 Output: Urine 1999 1200 / 1200 Other: # Voids 3 Date of Last Bowel Movement 06/24/18 06/24/18 Weight On Admission 82.6 kg Narrative: Alert and oriented x 3 No JVD S1S2 CTA b/l abd soft, nontender, normal bowel sounds Bilateral lower extremity edema has resolved. Results - Labs CBC & Chem 7: 06/25/18 06:10 06/25/18 22:35 Laboratory Results - last 24 hr 01/02/19 01/02/19 16:25 22:35 Sodium 137 Potassium 3.5 Chloride 104 Carbon Dioxide 25.1 Anion Gap 8 BUN 35 H Creatinine 1.97 H Estimated GFR 33 L Random Glucose 131 H Calcium 8.1 L Magnesium 2.0 Total Creatine Kinase 149 211 CK-MB (CK-2) 1.6 Troponin I 0.39 H 0.48 H Assessment and Plan - Plan This patient is an 82 y/o male with a dx of a fib on eliquis, cad s/p cabg x 2, 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 Patient says he had nuclear stress test approx one month ago which was negative. He presents with complaints of shortness of breath and chest tightness that occurs occasionally over the past couple of months. 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 He does not have any symptoms while at rest. He follow up with Dr. Mclean. He denies any palpitation or active chest pain. No fevers, or chills , no cough, no abd pain or diarrhea. 1. Chest pain, possible NSTEMI 2. Questionable CHF exacerbation unknown EF Patient presents with symptoms mentioned above. EKG shows a fib, HR 40s, LBBB seen on ekg thought to be rate related as per Cardiolgy note. Cont asa, statin, no bb due to bradycardia. Continue Eliquis. Cardiology following the patient. No cardiac cath for now give RAFIA worsening in pt with hx of nephrectomy. Nephrology consulted, will wait for their recs. 2decho ordered. 3. CAPNA 4. RAFIA possibly prerenal CXR shows a right lower lobe consolidatoin, febrile episode last night Given azithro in the ed yesterday. Will start rocephin, continue azithro. Possible pulm vasc congestion, BNP slightly elevated 158. Patient received a few doses of lasix yesterday. Cr. worsened to 1.9 Will start light IVF hydration today. F/u with nephro for their recs. Monitor on telemetry. 3. HTN Norvasc increased. Continue to monitor and adjust as needed. DVT prophylaxis, pt currently on Eliquis.
[2018-06-26] MEDS: Sod Chloride 0.9% Inj 1,000 ML IV.CONT SCH (16:37)
[2018-06-26] MEDS: Azithromycin Inj 250 MG in Sodium Chlor 0.9% Inj 250 ML IV.SIG SCH (18:39)
[2018-06-26] MEDS: traZODone 50 MG Tablet PO SCH (20:38)
[2018-06-27] MEDS: Sod Chloride 0.9% Inj 1,000 ML IV.CONT SCH (06:11)
--- NOTE | 2018-06-27 08:28 | ECHRPT ---
Indication: CONCLUSIONS Normal left ventricular size. Mild concentric left ventricular hypertrophy. The left ventricular systolic function is low normal with an estimated ejection fraction in the rang e of 50- 55%. Trace mitral valve regurgitation. Mild mitral valve stenosis. Mitral valve mean gradient is 7 mmHg. Restricted mobility of the anterior mitral valve leaflet. Restricted mobility of the posterior mitral valve leaflet. Aortic valve prosthesis present. Mild aortic valve stenosis. There is trace tricuspid valve regurgitation. The estimated pulmonary arterial pressure is 24 mmHg. BP: / HR: Rhythm: Atrial fibrillation, alt BBB MEASUREMENTS (Male / Female) Normal Values Technical Quality:Fair 2D ECHO LV Diastolic Diameter PLAX 4.4 cm 4.2 - 5.9 / 3.9 - 5.3 cm LV Systolic Diameter PLAX 3.4 cm IVS Diastolic Thickness 1.4 cm 0.6 - 1.0 / 0.6 - 0.9 cm LVPW Diastolic Thickness 1.4 cm 0.6 - 1.0 / 0.6 - 0.9 cm LV Relative Wall Thickness 0.6 RV Internal Dim ED PLAX 4.0 cm LVOT Diameter 1.6 cm LA Systolic Diameter LX 3.3 cm 3.0 - 4.0 / 2.7 - 3.8 cm DOPPLER AV Peak Velocity 221.7 cm/s AV Peak Gradient 19.7 mmHg AV Mean Gradient 10.0 mmHg AV Velocity Time Integral 41.0 cm LVOT Peak Velocity 128.7 cm/s LVOT Peak Gradient 6.6 mmHg LVOT Velocity Time Integral 27.6 cm AV Area Cont Eq vti 1.4 cm AV Area Cont Eq pk 1.2 cm MV Peak Velocity 231.0 cm/s MV Peak Gradient 21.3 mmHg MV Mean Velocity 105.8 cm/s MV Mean Gradient 6.7 mmHg MR Peak Velocity 140.0 cm/s MR Peak Gradient 7.8 mmHg Mitral E Point Velocity 152.0 cm/s LV E' Lateral Velocity 8.7 cm/s Mitral E to LV E' Lateral Ratio 17.5 LV E' Septal Velocity 4.5 cm/s Mitral E to LV E' Septal Ratio 33.9 TR Peak Velocity 189.0 cm/s TR Peak Gradient 14.3 mmHg Right Atrial Pressure 10.0 mmHg Pulmonary Artery Systolic Pressu 24.3 mmHg Right Ventricular Systolic Press 24.3 mmHg PV Peak Velocity 160.0 cm/s PV Peak Gradient 10.2 mmHg FINDINGS LEFT VENTRICLE Normal left ventricular size. Mild concentric left ventricular hypertrophy. The left ventricular systolic function is low normal with an estimated ejection fraction in the rang e of 50- 55%. RIGHT VENTRICLE Normal right ventricular size and systolic function. LEFT ATRIUM The left atrial size is normal. RIGHT ATRIUM The right atrial size is normal. ATRIAL SEPTUM Normal atrial septal thickness without atrial level shunting by limited color doppler interrogation. AORTA The aortic root and proximal ascending aorta are normal in size on limited imaging. MITRAL VALVE Trace mitral valve regurgitation. Mild mitral valve stenosis. Mitral valve mean gradient is 7 mmHg. Restricted mobility of the anterior mitral valve leaflet. Restricted mobility of the posterior mitral valve leaflet. AORTIC VALVE Aortic valve prosthesis present. Mild aortic valve stenosis. TRICUSPID VALVE There is trace tricuspid valve regurgitation. The estimated pulmonary arterial pressure is 24 mmHg. PULMONARY VALVE No pulmonary valve regurgitation or stenosis. VESSELS The inferior vena cava is normal in size. PERICARDIUM No pericardial effusion. Morro Shaw MD, FACC (Electronically Signed) Final Date:27 June 2018 08:27
[2018-06-27 08:49] LABS: Calcium 7.9 mg/dL (8.5-10.1); Magnesium 2.2 mg/dL (1.5-2.5); Potassium 3.5 meq/L (3.5-5.1)
[2018-06-27] MEDS: Pantoprazole Sodium 20 MG DR Tablet PO SCH (08:49)
[2018-06-27] MEDS: Finasteride 5 MG Tablet PO SCH (08:49)
[2018-06-27] MEDS: amLODIPine 5 MG Tablet PO SCH (08:49)
--- NOTE | 2018-06-27 09:05 | P.CONNP ---
<Marialuisa Shah - Last Filed: 06/27/18 10:06> History of Present Illness Consult date: 06/27/17 Reason for Consult: CKD Primary Care Provider: Celestine Caldwell MD Chief Complaint: SOB History of Present Illness: Patient is an 82 year old male who presented to the ED 06/25/18 with SOB. Cxr showed right base consolidation or atelectasis, CT scan showed no PE. Patient placed on Azithromycin and Ceftriaxone. 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 Patient's baseline renal function - eGFR 42 and Creatinine 1.53. Patient follows with buckle coverer Dr. Jerry. Patient's current eGFR is 34 and Creatinine 1.90. Patient was given IV contrast 06/25/18 and has also been bradycardic. Patient stated he has had no trouble urinating and produced 3.5 L of urine yesterday. Patient was given 40mg IV Lasix yesterday. Patient denies chest pain, n/v. States he has shortness of breath with exertion. Patient was on O2 NC. Patient denies tobacco, alcohol, illicit drug use. Patient has no family history of kidney disease but has family history of CAD, DM, HTN, HLD, CVA. Review of Systems All other systems reviewed negative except as stated in HPI [facility] - History History Provided By: Patient - Medical History Medical History: Medical History (Last Reviewed 06/26/18 @ 11:52 by Robin Parish) Afib HTN (hypertension) Heart attack Hypercholesteremia - Surgical History Surgical History: Surgical History (Last Reviewed 06/26/18 @ 11:52 by Robin Parish) H/O aortic valve replacement H/O kidney removal History of mitral valve repair S/P CABG x 2 - Tobacco History Second Hand Smoke Exposure: Yes Tobacco Use In Past 30 Days: No Smoking Status: Never smoker Tobacco Type: Cigarettes - Alcohol History How Often Do You Have a Drink Containing Alcohol: Never - Substance Use History Substance History: No History of Abuse - Travel History Recent Travel in the [place] Within the Last 8 Weeks: No Recent Travel Out of the Country Within the Last 8 Weeks: No - Immunization History Tetanus Immunization: <5 Years Hx Influenza Vaccine This Season: Yes Medications and Allergies Allergies Allergy/AdvReac Type Severity Reaction Status Date / Time No Known Allergies Allergy Verified 06/25/18 04:45 Home Medications Medication Instructions Recorded Confirmed Type amlodipine 5 mg PO DAILY 06/25/18 06/25/18 History apixaban [Eliquis] 2.5 mg PO BID 06/25/18 06/25/18 History atorvastatin 10 mg PO DAILY 06/25/18 06/25/18 History coenzyme Q10 [CoQ-10] 100 mg PO DAILY 06/25/18 06/25/18 History finasteride 5 mg PO DAILY 06/25/18 06/25/18 History metoprolol tartrate 25 mg PO BID 06/25/18 06/25/18 History omeprazole 20 mg PO DAILY 06/25/18 06/25/18 History terazosin 2 mg PO DAILY 06/25/18 06/25/18 History trazodone 50 mg PO DAILY 06/25/18 06/25/18 History Active Medications: Active Medications Albuterol (Albuterol Neb (Prn)) 2.5 mg NEB Q6HR NEB PRN PRN Reason: SHORTNESS OF BREATH/WHEEZING Last Admin: 06/26/18 00:24 Dose: 2.5 mg Amlodipine Besylate (Norvasc) 10 mg PO DAILY [facility] Last Admin: 06/27/18 08:49 Dose: 10 mg Apixaban (Eliquis) 2.5 mg PO BID [facility] Last Admin: 06/27/18 08:49 Dose: 2.5 mg Aspirin (Aspirin Chew) 81 mg PO DAILY [facility] Last Admin: 06/27/18 08:49 Dose: 81 mg Atorvastatin Calcium (Lipitor) 40 mg PO HS [facility] Last Admin: 06/26/18 20:38 Dose: 40 mg Finasteride (Proscar) 5 mg PO DAILY [facility] Last Admin: 06/27/18 08:49 Dose: 5 mg Azithromycin 250 mg/ Sodium (Chloride) 250 mls @ 250 mls/hr IV.SIG Q24H [facility] Last Infusion: 06/26/18 19:40 Dose: Infused Ceftriaxone Sodium 1,000 mg/ (Sodium Chloride) 100 mls @ 200 mls/hr IV.SIG Q24H [facility] Last Infusion: 06/26/18 18:05 Dose: Infused Sodium Chloride (Ns Inj) 1,000 mls @ 70 mls/hr IV.CONT .[id number] [facility] Last Admin: 06/27/18 06:11 Dose: 70 mls/hr Pantoprazole Sodium (Protonix) 20 mg PO DAILY [facility] Last Admin: 06/27/18 08:49 Dose: 20 mg Terazosin HCl (Hytrin) 2 mg PO [facility] Last Admin: 06/26/18 20:38 Dose: 2 mg Trazodone HCl (Desyrel) 50 mg PO [facility] Last Admin: 06/26/18 20:38 Dose: 50 mg Exam Vital signs: Vital Signs 06/26/18 09:42 06/26/18 12:00 06/26/18 16:00 Temperature 99.1 F 97.7 F Pulse Rate 52 L 54 L Respiratory Rate 18 16 Blood Pressure 149/66 H 176/74 H Pulse Oximetry 93 L 91 L 95 06/26/18 20:00 06/26/18 21:38 06/27/18 00:00 Temperature 100.5 F H 98.8 F Pulse Rate 51 L 53 L Respiratory Rate 22 17 Blood Pressure 175/74 H 150/66 H Pulse Oximetry 94 L 96 93 L 06/27/18 04:00 06/27/18 08:00 Temperature 99.9 F H Pulse Rate 45 L Respiratory Rate 20 Blood Pressure 151/67 H Pulse Oximetry 90 L 94 L Intake & Output 06/26/18 06/27/18 06/27/18 18:59 06:59 18:59 Intake Total 720 / 720 1969 Output Total 2300 / 2300 Balance -1580 / -1580 1969 Weight 84.8 kg Intake: IV 100 / 100 1250 / 1250 NS Inj 1,000 ML @ 70 mls/hr IV. 1000 / 1000 CONT .[id number] [facility] Rx#:[id number] Azithromycin Inj 250 MG In NS 250 / 250 Inj 250 ML @ 250 mls/hr IV.SIG Q24H [facility] Rx#:[id number] Rocephin Inj 1,000 MG In NS Inj 100 / 100 100 ML @ 200 mls/hr IV.SIG Q24H [facility] Rx#:[id number] Oral 620 / 620 720 / 720 Output: Urine 2300 / 2300 Other: # Voids 1 Date of Last Bowel Movement 06/24/18 06/24/18 # Bowel Movements 1 1 - Constitutional no acute distress - Routine HEENT Exam Head: Present: normocephalic Eye: Present: EOMI, PERRL ENT: Present: mucous membranes moist - Routine Neck Exam Present: trachea midline. Absent: JVD, tracheal deviation - Routine Respiratory Exam Present: crackles. Absent: accessory muscle use, respiratory distress Comments: Crackles heard at bases. - Routine Cardiovascular Exam Present: S1, S2, bradycardia. Absent: murmur - Routine Abdominal Exam Present: soft, normoactive bowel sounds. Absent: tenderness - Routine Extremities Exam Present: edema Comments: Mild peripheral edema - Routine Skin Exam Present: intact - Routine Neurological Exam Present: alert, oriented X3 Results - Lab Results 06/25/18 06:10 06/27/18 07:25 Most recent lab results Calcium 7.9 mg/dL (8.5-10.1) L 06/27/18 07:25 Magnesium 2.2 mg/dL (1.5-2.5) 06/27/18 07:25 Assessment and Plan - Assessment (1) Chronic kidney disease, stage 3 Code(s): N18.3 - Chronic kidney disease, stage 3 (moderate) Status: Acute Plan: Patient has PMH of CKD stage III, patient's baseline renal function - eGFR is 42 and Creatinine 1.53. Patient follows with buckle coverer Dr. Jerry. Patient's current eGFR is 34 and Creatinine 1.90. Acute on Chronic could be due to renal hypoperfusion, patient has been bradycardic. Patient was also given IV contrast 06/25/[address] scan. Patient to be started on Lasix 20mg daily. Hypocalcemia noted, patient on Calcium Carbonate at home. Monitor fluid and electrolytes. Monitor urine output. Avoid nephrotoxic agents. (2) CHF exacerbation Code(s): I50.9 - Heart failure, unspecified Status: Acute Plan: Patient follows with Dr. Mclean. Repeat chest x-ray ordered. (3) Hypertension Code(s): I10 - Essential (primary) hypertension Status: Acute Plan: Monitor BP. Patient's beta edin was stopped due to bradycardia and Amlodipine was increased. (4) Hyperlipemia Code(s): E78.5 - Hyperlipidemia, unspecified Status: Acute Plan: Patient on Atorvastatin. <Ephraim Jerry - Last Filed: 06/27/18 14:43> History of Present Illness Primary Care Provider: Celestine Caldwell MD [facility] - Medical History Medical History: Medical History (Last Reviewed 06/26/18 @ 11:52 by Robin Parish) Afib HTN (hypertension) Heart attack Hypercholesteremia - Surgical History Surgical History: Surgical History (Last Reviewed 06/26/18 @ 11:52 by Robin Parish) H/O aortic valve replacement H/O kidney removal History of mitral valve repair S/P CABG x 2 Medications and Allergies Active Medications: Active Medications Albuterol (Albuterol Neb (Prn)) 2.5 mg NEB Q6HR NEB PRN PRN Reason: SHORTNESS OF BREATH/WHEEZING Last Admin: 06/26/18 00:24 Dose: 2.5 mg Amlodipine Besylate (Norvasc) 10 mg PO DAILY [facility] Last Admin: 06/27/18 08:49 Dose: 10 mg Apixaban (Eliquis) 2.5 mg PO BID [facility] Last Admin: 06/27/18 08:49 Dose: 2.5 mg Aspirin (Aspirin Chew) 81 mg PO DAILY [facility] Last Admin: 06/27/18 08:49 Dose: 81 mg Atorvastatin Calcium (Lipitor) 40 mg PO HS [facility] Last Admin: 06/26/18 20:38 Dose: 40 mg Calcium Carbonate (Tums Chew) 500 mg CHEW BID [facility] Last Admin: 06/27/18 12:15 Dose: 500 mg Finasteride (Proscar) 5 mg PO DAILY [facility] Last Admin: 06/27/18 08:49 Dose: 5 mg Furosemide (Lasix Inj) 20 mg IV.PUSH DAILY [facility] Last Admin: 06/27/18 12:15 Dose: 20 mg Azithromycin 250 mg/ Sodium (Chloride) 250 mls @ 250 mls/hr IV.SIG Q24H [facility] Last Infusion: 06/26/18 19:40 Dose: Infused Ceftriaxone Sodium 1,000 mg/ (Sodium Chloride) 100 mls @ 200 mls/hr IV.SIG Q24H [facility] Last Infusion: 06/26/18 18:05 Dose: Infused Pantoprazole Sodium (Protonix) 20 mg PO DAILY [facility] Last Admin: 06/27/18 08:49 Dose: 20 mg Terazosin HCl (Hytrin) 2 mg PO HS [facility] Last Admin: 06/26/18 20:38 Dose: 2 mg Trazodone HCl (Desyrel) 50 mg PO HS [facility] Last Admin: 06/26/18 20:38 Dose: 50 mg Exam Vital signs: Vital Signs 06/26/18 16:00 06/26/18 20:00 06/26/18 21:38 Temperature 97.7 F 100.5 F H Pulse Rate 54 L 51 L Respiratory Rate 16 22 Blood Pressure 176/74 H 175/74 H Pulse Oximetry 95 94 L 96 06/27/18 00:00 06/27/18 04:00 06/27/18 08:00 Temperature 98.8 F 99.9 F H 99.8 F H Pulse Rate 53 L 45 L 49 L Respiratory Rate 17 20 18 Blood Pressure 150/66 H 151/67 H 144/66 H Pulse Oximetry 93 L 90 L 90 L 06/27/18 10:03 06/27/18 10:04 06/27/18 12:00 Temperature 99.2 F Pulse Rate 54 L 50 L Respiratory Rate 14 18 Blood Pressure 146/64 H Pulse Oximetry 91 L 91 L Intake & Output 06/26/18 06/27/18 06/27/18 18:59 06:59 18:59 Intake Total 720 / 720 1969 1000 / 1000 Output Total 2300 / 2300 Balance -1580 / -1580 1969 1000 / 1000 Weight 84.8 kg Intake: IV 100 / 100 1250 / 1250 1000 / 1000 NS Inj 1,000 ML @ 70 mls/hr IV. 1000 / 1000 1000 / 1000 CONT .[id number] [facility] Rx#:[id number] Azithromycin Inj 250 MG In NS 250 / 250 Inj 250 ML @ 250 mls/hr IV.SIG Q24H [facility] Rx#:[id number] Rocephin Inj 1,000 MG In NS Inj 100 / 100 100 ML @ 200 mls/hr IV.SIG Q24H [facility] Rx#:[id number] Oral 620 / 620 720 / 720 Output: Urine 2300 / 2300 Other: # Voids 1 Date of Last Bowel Movement 06/24/18 06/24/18 # Bowel Movements 1 1 Results - Lab Results 06/25/18 06:10 06/27/18 07:25 Most recent lab results Calcium 7.9 mg/dL (8.5-10.1) L 06/27/18 07:25 Phosphorus 3.1 mg/dL (2.5-4.9) 06/27/18 07:25 Magnesium 2.2 mg/dL (1.5-2.5) 06/27/18 07:25 Assessment and Plan - Assessment (1) Chronic kidney disease, stage 3 Code(s): N18.3 - Chronic kidney disease, stage 3 (moderate) Status: Acute (2) CHF exacerbation Code(s): I50.9 - Heart failure, unspecified Status: Acute (3) Hypertension Code(s): I10 - Essential (primary) hypertension Status: Acute (4) Hyperlipemia Code(s): E78.5 - Hyperlipidemia, unspecified Status: Acute - Attending Attestation patient was seen and examined. Agree with above assessment and plan. Obtain UA and renal US. Avoid nephrotoxic agents. Although bradycardic, his BP was well maintained. <Marialuisa Shah - Last Filed: 06/27/18 10:06> (2) CHF exacerbation Qualifiers: Heart failure type: unspecified Qualified Code(s): I50.9 - Heart failure, unspecified <Ephraim Jerry - Last Filed: 06/27/18 14:43> (2) CHF exacerbation Qualifiers: Heart failure type: unspecified Qualified Code(s): I50.9 - Heart failure, unspecified
--- NOTE | 2018-06-27 09:38 | P.PNCA ---
Subjective Interval history: Pt reports increase in SOB this AM. Reports extreme fatigue and SOB with minimal exertion. ABTS started yesterday due to fever and area of consolidation seen on chest xray. Telemetry reveals Afib, rates in the 40s. Pt denies any syncope or dizziness. Medications and Allergies Allergies Allergy/AdvReac Type Severity Reaction Status Date / Time No Known Allergies Allergy Verified 06/25/18 04:45 Home Medications Medication Instructions Recorded Confirmed Type amlodipine 5 mg PO DAILY 06/25/18 06/25/18 History apixaban [Eliquis] 2.5 mg PO BID 06/25/18 06/25/18 History atorvastatin 10 mg PO DAILY 06/25/18 06/25/18 History coenzyme Q10 [CoQ-10] 100 mg PO DAILY 06/25/18 06/25/18 History finasteride 5 mg PO DAILY 06/25/18 06/25/18 History metoprolol tartrate 25 mg PO BID 06/25/18 06/25/18 History omeprazole 20 mg PO DAILY 06/25/18 06/25/18 History terazosin 2 mg PO DAILY 06/25/18 06/25/18 History trazodone 50 mg PO DAILY 06/25/18 06/25/18 History Active Medications: Active Medications Albuterol (Albuterol Neb (Prn)) 2.5 mg NEB Q6HR NEB PRN PRN Reason: SHORTNESS OF BREATH/WHEEZING Last Admin: 06/26/18 00:24 Dose: 2.5 mg Amlodipine Besylate (Norvasc) 10 mg PO DAILY [facility] Last Admin: 06/27/18 08:49 Dose: 10 mg Apixaban (Eliquis) 2.5 mg PO BID [facility] Last Admin: 06/27/18 08:49 Dose: 2.5 mg Aspirin (Aspirin Chew) 81 mg PO DAILY [facility] Last Admin: 06/27/18 08:49 Dose: 81 mg Atorvastatin Calcium (Lipitor) 40 mg PO HS [facility] Last Admin: 06/26/18 20:38 Dose: 40 mg Finasteride (Proscar) 5 mg PO DAILY [facility] Last Admin: 06/27/18 08:49 Dose: 5 mg Azithromycin 250 mg/ Sodium (Chloride) 250 mls @ 250 mls/hr IV.SIG Q24H [facility] Last Infusion: 06/26/18 19:40 Dose: Infused Ceftriaxone Sodium 1,000 mg/ (Sodium Chloride) 100 mls @ 200 mls/hr IV.SIG Q24H [facility] Last Infusion: 06/26/18 18:05 Dose: Infused Sodium Chloride (Ns Inj) 1,000 mls @ 70 mls/hr IV.CONT .[id number] [facility] Last Admin: 06/27/18 06:11 Dose: 70 mls/hr Pantoprazole Sodium (Protonix) 20 mg PO DAILY [facility] Last Admin: 06/27/18 08:49 Dose: 20 mg Terazosin HCl (Hytrin) 2 mg PO HS [facility] Last Admin: 06/26/18 20:38 Dose: 2 mg Trazodone HCl (Desyrel) 50 mg PO [facility] Last Admin: 06/26/18 20:38 Dose: 50 mg Physical Exam Vital signs: Vital Signs 06/26/18 09:42 06/26/18 12:00 06/26/18 16:00 Temperature 99.1 F 97.7 F Pulse Rate 52 L 54 L Respiratory Rate 18 16 Blood Pressure 149/66 H 176/74 H Pulse Oximetry 93 L 91 L 95 06/26/18 20:00 06/26/18 21:38 06/27/18 00:00 Temperature 100.5 F H 98.8 F Pulse Rate 51 L 53 L Respiratory Rate 22 17 Blood Pressure 175/74 H 150/66 H Pulse Oximetry 94 L 96 93 L 06/27/18 04:00 06/27/18 08:00 Temperature 99.9 F H 99.8 F H Pulse Rate 45 L 49 L Respiratory Rate 20 18 Blood Pressure 151/67 H 144/66 H Pulse Oximetry 90 L 90 L Intake & Output 06/26/18 06/27/18 06/27/18 18:59 06:59 18:59 Intake Total 720 / 720 1969 Output Total 2300 / 2300 Balance -1580 / -1580 1969 Weight 84.8 kg Intake: IV 100 / 100 1250 / 1250 NS Inj 1,000 ML @ 70 mls/hr IV. 1000 / 1000 CONT .[id number] [facility] Rx#:[id number] Azithromycin Inj 250 MG In NS 250 / 250 Inj 250 ML @ 250 mls/hr IV.SIG Q24H [facility] Rx#:[id number] Rocephin Inj 1,000 MG In NS Inj 100 / 100 100 ML @ 200 mls/hr IV.SIG Q24H [facility] Rx#:[id number] Oral 620 / 620 720 / 720 Output: Urine 2300 / 2300 Other: # Voids 1 Date of Last Bowel Movement 06/24/18 06/24/18 # Bowel Movements 1 1 Results 06/25/18 06:10 06/27/18 07:25 Cardiac Enzymes 06/25/18 06/25/18 06/25/18 Range/Units 11:52 16:25 22:35 CK-MB (CK-2) 1.6 (0.5-3.6) ng/mL Troponin I 0.40 H 0.39 H 0.48 H (0.02-0.05) ng/mL Comprehensive Metabolic Panel 06/25/18 06/27/18 Range/Units 22:35 07:25 Sodium 137 137 (136-145) meq/L Potassium 3.5 3.5 (3.5-5.1) meq/L Chloride 104 105 (98-107) meq/L Carbon Dioxide 25.1 23.0 (21.0-32.0) meq/L BUN 35 H 49 H (7-18) mg/dL Creatinine 1.97 H 1.90 H (0.60-1.30) mg/dL Calcium 8.1 L 7.9 L (8.5-10.1) mg/dL Intake and Output 06/26/18 06/27/18 06/27/18 22:59 06:59 14:59 Intake Total 970 / 970 1720 / 1720 Output Total 2300 / 2300 Balance -1330 / -1330 1720 / 1720 Intake: IV 350 / 350 1000 / 1000 NS Inj 1,000 ML @ 70 mls/hr IV. 1000 / 1000 CONT .[id number] [facility] Rx#:[id number] Azithromycin Inj 250 MG In NS 250 / 250 Inj 250 ML @ 250 mls/hr IV.SIG Q24H [facility] Rx#:[id number] Rocephin Inj 1,000 MG In NS Inj 100 / 100 100 ML @ 200 mls/hr IV.SIG Q24H [facility] Rx#:[id number] Oral 620 / 620 720 / 720 Output: Urine 2300 / 2300 Other: # Voids 1 Date of Last Bowel Movement 06/24/18 # Bowel Movements 1 1 Weight 84.8 kg Assessment and Plan - Plan Assessment Elevated troponin Shortness of breath Mild CHF? New LBBB Bradycardia ASHD Aortic stenosis Mitral stenosis Carotid stenosis Atrial fibrillation Renal insufficiency, status post left nephrectomy Plan -Troponin mildly elevated, remains flat, could be secondary to renal insufficiency. -Worsening SOB today. Repeat chest xray ordered and neb treatment ordered. -CTA ruled out PE, did show 1 cm nodule left midlung, nonspecific at this point. Follow-up CT scan in 3-6 months recommended. -New LBBB, heart cath discussed in detail with patient and family. Pt is at increased risk due to renal insuf. -Atrial fibrillation, rates in the 40s with junctional rhythm. We will hold off on any beta-blockers at this time. -Moderate left-sided carotid stenosis unable to complete CTA due to history of nephrectomy and renal insufficiency. Last carotid ultrasound was completed March 2018 with an estimated 50-69% left-sided stenosis. -Continues on Eliquis 2.5 mg PO BID. -BP better on increased dose of amlodipine. -Possible mild CHF due to bradycardia. Beta edin has been discontinued. -History of renal cancer status post left nephrectomy, creatinine 1.[address] Jerry who has been consulted. GRF down to 34. Calcium low. Appreciate nephrology input given pt history of nephrectomy. Pt had CTA 2 days ago. -Will DC IV fluids, and give lasix 20mg daily. Crackles noted, chest xray ordered, concern for pulmonary edema. Pt is cleared from cardiology for DC home tomorrow (Saturday). He will be sent home on Lasix 20mg daily. Advised to discontinue Metoprolol. He will need hospital follow up in 1-2 weeks with 48 hour holter monitor. Patient was seen and evaluated by Dr. Mclean who participated in care management decision making. The exam, history, and the medical decision-making described in the above note were completed with the assistance of the mid-level provider. I reviewed and agree with the findings presented. I attest that I had a [id number] encounter with the patient on the same day, and personally performed and documented my assessment and findings in the medical record., Overall doing better suspect CHF early vs pnuemonia. HR better off betablockers, send home on diuretics and check Holter as o/p, if HR still slow consider pacer. Discussed Condition With: Dr. Mclean and RN
[2018-06-27] MEDS ORDERED: Furosemide 20 MG Tablet PO SCH (10:00)
--- NOTE | 2018-06-27 13:27 | XR ---
EXAM DATE: 06/27/2018 1:19 PM EST AGE/SEX: 82 years / Male INDICATIONS: . Short of breath, crackles CLINICAL DATA: This is the patient's subsequent encounter. Patient reports that signs and symptoms h ave been present for 3 days and indicates a pain score of 0/10. MEDICAL/SURGICAL HISTORY: Cardiovascular disease. A-fib CABG. COMPARISON: [facility], CHEST 1V SINGLE AP, 06/25/2018. . FINDINGS: Slight improved aeration in the right lower lung zone. Mild diffuse interstitial prominence. Postsurg ical features of prior median sternotomy and cardiac valve replacement. The cardiomediastinal contour s are stable. Osseous structures are intact. CONCLUSION: 1. Improved aeration of the right lower lung zone. 2. Persistent mild positive fluid balance. Electronically signed by: Chemo Diaz MD Board Certified Radiologist 06/27/2018 1:26 PM EST
[2018-06-27 15:33] LABS: Bilirubin,Urine Negative (Negative); Clarity,Urine Hazy (Clear); Color,Urine Amber (Yellw/Straw); Glucose,Urine (UA) Negative (Negative); Leukocyte Esterase,Urine Negative (Negative); Mucus,Urine Few /lpf (Occasional); Nitrite,Urine Negative (Negative); Specific Gravity,Urine 1.028 (1.002-1.035)
[2018-06-27] MEDS: Azithromycin Inj 250 MG in Sodium Chlor 0.9% Inj 250 ML IV.SIG SCH (16:13)
--- NOTE | 2018-06-27 16:13 | P.PNIM ---
Subjective Interval history: Patient with sob while going to bathroom today no chest pain no palp no nausea or vomiting no diaphoresis no loc tolerating abx Physical Exam Vital signs: Last Vital Signs Temp 99.2 F 06/27/18 12:00 Pulse 54 L 06/27/18 12:00 Resp 18 06/27/18 12:00 BP 146/64 H 06/27/18 12:00 Pulse Ox 91 L 06/27/18 12:00 Intake & Output 06/25/18 06/26/18 06/27/18 06/28/18 06:59 06:59 06:59 06:59 Intake Total 1070 / 1070 2690 / 2690 1000 / 1000 Output Total 3200 / 3200 2300 / 2300 Balance -2130 / -2130 390 / 390 1000 / 1000 Weight 80.739 kg 82.6 kg 84.8 kg gen: nad heent: eomi cvs: s1/s2 resp: inspiratory crackle RIGHT middle/lower lung base, left side was clear gi: soft, non tender, non distended,no guarding ext: no edema Results Labs CBC & Chem 7: 06/25/18 06:10 06/27/18 07:25 Imaging Imaging: Impressions Chest X-Ray 06/27/18 00:00 CONCLUSION: 1. Improved aeration of the right lower lung zone. 2. Persistent mild positive fluid balance. 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 Patient says he had nuclear stress test approx one month ago which was negative. He presents with complaints of shortness of breath and chest tightness that occurs occasionally over the past couple of months. 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 He does not have any symptoms while at rest. He follow up with Dr. Mclean. He denies any palpitation or active chest pain. No fevers, or chills , no cough, no abd pain or diarrhea. 1. Chest pain, possible NSTEMI 2. Questionable CHF exacerbation unknown EF cardiology consulted and will be cleared by cardiology on wednesday 06/28 with outpatient follow up with possible holter outpatient. Cont asa, statin, no bb due to bradycardia. Continue Eliquis. Cardiology following the patient. No cardiac cath for now give RAFIA worsening in pt with hx of nephrectomy. 3. RAFIA Nephrology consulted renal U/S --> r/o obstruction or hydronephrosis 3. CAPNA CXR obtained will order legionella/pneumococcal antigens AM procalcitonin level for 1 continue abx and monitor clinically dvt ppx: eliquis code: fc plan discussed in part on 06/27 at bedside with patient and . renal u/s PENDING, CXR PENDING, labwork for pneumonia PENDING. Progress Note: Quality VTE Deep Vein Thrombosis/Pulmonary Embolism Present on Admission: No
--- NOTE | 2018-06-27 17:31 | US ---
EXAM DATE: 06/27/2018 5:27 PM EST AGE/SEX: 82 years / Male INDICATIONS: Elevated labs. CLINICAL DATA: This is the patient's initial encounter. Patient reports that signs and symptoms have been present for 1 day and indicates a pain score of 0/10. MEDICAL/SURGICAL HISTORY: Myocardial infarction. Hypertension. Hypercholesterolemia. A-fib. CABG. Nephrectomy, right. Aortic valve replacement. COMPARISON: . MEASUREMENTS: Right Kidney:__. Surgically absent. Left Kidney:__12.9 x 8.3 x 5.4 cm FINDINGS: Right Kidney: Surgically absent. Left Kidney: Normal echogenicity and cortical thickness. No mass or hydronephrosis. Bladder: Decompressed. Not well evaluated. Other: None. CONCLUSION: 1. Status post previous right nephrectomy. 2. Left kidney is grossly unremarkable. No evidence of hydronephrosis. Electronically signed by: Darian Lunsford MD Board Certified Radiologist 06/27/2018 5:29 PM EST
[2018-06-27] MEDS: traZODone 50 MG Tablet PO SCH (20:52)
[2018-06-28 08:08] VITALS: RESP 17
[2018-06-28] MEDS: Finasteride 5 MG Tablet PO SCH (08:14)
[2018-06-28] MEDS: amLODIPine 5 MG Tablet PO SCH (08:14)
[2018-06-28] MEDS: Pantoprazole Sodium 20 MG DR Tablet PO SCH (08:15)
[2018-06-28 08:33] LABS: Hematocrit 31.7 % (39.0-51.0); Hemoglobin 10.5 gm/dL (13.0-17.0); Mean Corpuscular HGB Conc 33.1 % (32.0-36.0); Mean Corpuscular Volume 90.6 fL (80.0-100.0); Platelet Count 151 th/mm3 (150-450); Red Cell Distribution Width 14.3 % (11.6-17.2); White Blood Count 6.4 th/mm3 (4.0-11.0)
[2018-06-28 09:51] LABS: Calcium 8.3 mg/dL (8.5-10.1); Carbon Dioxide 24.1 meq/L (21.0-32.0); Phosphorus 3.5 mg/dL (2.5-4.9); Potassium 3.7 meq/L (3.5-5.1)
[2018-06-28 13:22] VITALS: BP 155/67; PULSE 81; TEMP 98.4; O2SAT 93
--- NOTE | 2018-06-28 13:33 | P.DS ---
DS: Providers Date of admission: 06/25/18 08:16 Primary care physician: Celestine Caldwell MD Consults: 06/25/18 10:49 Consult to Cardiology Routine Consulting Provider: Karishma Mclean Does the patient have a Food Concession Manager who follows them?: Yes Preferred Chain Saw Driver:: Karishma Mclean Reason for Consultation: Chest tightness, elevated troponin Notified:: Office Spoke with:: Ivett Date Notified:: 06/25/18 Time Notified:: 10:54 Ordering Provider: MARTINEZ 06/26/18 08:56 Consult to Nephrology Routine Consulting Provider: Alan Soto Does the patient have a Drainman who follows them?: Yes Preferred Nephrology Gas Pit Worker:: Ephraim Jerry Reason for Consultation: Creat 1.96 Notified:: Service Spoke with:: neal Date Notified:: 06/26/18 Time Notified:: 09:01 Ordering Provider: MLIY Brief History from admission: This patient is an 82 y/o male with a dx of a fib on eliquis, cad s/p cabg x 2, 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 Patient says he had nuclear stress test approx one month ago which was negative. He presents with complaints of shortness of breath and chest tightness that occurs occasionally over the past couple of months. 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 He does not have any symptoms while at rest. He follow up with Dr. Mclean. He denies any palpitation or active chest pain. No fevers, or chills , no cough, no abd pain or diarrhea. Fam hx no significant family hx as per patient. 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 Patient says he had nuclear stress test approx one month ago which was negative. He presents with complaints of shortness of breath and chest tightness that occurs occasionally over the past couple of months. 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 He does not have any symptoms while at rest. He follows up with Dr. Mclean. No fevers, or chills, no cough, no abd pain or diarrhea. Patient was evaluated by his cash register operator, Dr. Mclean. Due to bradycardia, beta edin was discontinued. Patient was given IV Lasix due to CHF. CXR showed pulmonary edema. No clinical evidence of pneumonia. Thus, we will not continue any more abx. His creatinine remained around 1.9. He has CKD and follows up with Dr. Jerry. Patient's primary reason for shortness of breath was CHF. Cardiology recommended 20mg of PO lasix and discharge on 06/28/2018. Given better efficacy, I discharged patient on Torsemide 10mg Qday and close follow up with Cardiology. During this admission, CTA showed a 1cm lung nodule. We will obtain [address] chest. Patient is ambulating well without any supplemental O2. He is hemodynamically stable. We will discharge him home with cardiology, nephrology follow up as well as BMP in one week and CT chest in 3 months. Time Spent with Patient Total time spent providing and/or coordinating discharge services: Greater than 30 minutes Quality: VTE Deep Vein Thrombosis/Pulmonary Embolism Present on Admission: No Exam Narrative Exam Narrative: GENERAL: Alert, NAD. SKIN: Warm and dry. HEAD: Normocephalic. EYES: No scleral icterus. No injection or drainage. NECK: Supple, trachea midline. No JVD or lymphadenopathy. CARDIOVASCULAR: Regular rate and rhythm without murmurs, gallops, or rubs. RESPIRATORY: Breath sounds equal bilaterally. No accessory muscle use. Mild bibasilar crackles. GASTROINTESTINAL: Abdomen soft, non-tender, nondistended. MUSCULOSKELETAL: No cyanosis. Trace edema in lower ext. BACK: Nontender without obvious deformity. No CVA tenderness. Results Labs on day of discharge: Labs from last 24 hours 06/28/18 06/28/18 06/28/18 07:10 07:10 07:10 WBC 6.4 RBC 3.50 L Hgb 10.5 L Hct 31.7 L MCV 90.6 MCH 30.0 MCHC 33.1 RDW 14.3 Plt Count 151 MPV 9.0 Sodium 137 Potassium 3.7 Chloride 104 Carbon Dioxide 24.1 Anion Gap 9 BUN 45 H Creatinine 1.99 H Estimated GFR 32 L Random Glucose 121 H Calcium 8.3 L Phosphorus 3.5 Albumin 3.0 L Procalcitonin 0.66 H Urine Color Urine Clarity Urine pH Ur Specific Robinson Urine Protein Urine Glucose (UA) Urine Ketones Urine Occult Blood Urine Nitrate Urine Bilirubin Urine Urobilinogen Ur Leukocyte Esterase Urine RBC Urine WBC Granular Casts Urine Mucus Ur Microscopic Review 06/27/18 15:00 WBC RBC Hgb Hct MCV MCH MCHC RDW Plt Count MPV Sodium Potassium Chloride Carbon Dioxide Anion Gap BUN Creatinine Estimated GFR Random Glucose Calcium Phosphorus Albumin Procalcitonin Urine Color Sosa Urine Clarity Hazy H Urine pH 5.0 Ur Specific Robinson 1.028 Urine Protein 100 H Urine Glucose (UA) Negative Urine Ketones Negative Urine Occult Blood Small H Urine Nitrate Negative Urine Bilirubin Negative Urine Urobilinogen Less than 2 Ur Leukocyte Esterase Negative Urine RBC 1 Urine WBC 1 Granular Casts 3 Urine Mucus Few H Ur Microscopic Review Not Reportable Impressions ITS Impressions Chest CTA 06/25/18 08:10 CONCLUSION: 1. Negative for central pulmonary emboli 2. Mild compensated cardiomegaly with extensive coronary and aortic valvular calcifications 3. 1 cm nodule left midlung, nonspecific at this point. Follow-up CT scan in 3- 6 months would be of benefit to confirm Chest X-Ray 06/27/18 00:00 CONCLUSION: 1. Improved aeration of the right lower lung zone. 2. Persistent mild positive fluid balance. Abdomen/Bladder Ultrasound 06/27/18 14:42 CONCLUSION: 1. Status post previous right nephrectomy. 2. Left kidney is grossly unremarkable. No evidence of hydronephrosis. Discharge Plan Discharge Disposition Patient Disposition: Discharge Home Discharge Condition Condition: Good Discharge Order Discharge Orders: Discharge Order (Routine); Ordered 06/28/18 Ordered By: Sd Valdez Discharge Details Anticipated Discharge Date: 06/28/18 Physicians Team Primary Care Provider: Celestine Caldwell Attending Provider: Sd Valdez Other Providers: Karishma Mclean ; Alan Soto Rxs /Orders / Referrals /Forms Prescriptions: New atorvastatin 40 mg Tablet 40 mg PO HS Qty: 90 RF: 3 amlodipine [Norvasc] 5 mg Tablet 10 mg PO DAILY Qty: 30 RF: 5 torsemide 10 mg tablet 10 mg PO DAILY Qty: 30 RF: 5 Continue trazodone 50 mg Tablet 50 mg PO DAILY RF: 0 terazosin 2 mg Capsule 2 mg PO DAILY RF: 0 omeprazole 20 mg Capsule,Delayed Release(Dr/Ec) 20 mg PO DAILY RF: 0 finasteride 5 mg Tablet 5 mg PO DAILY RF: 0 coenzyme Q10 [CoQ-10] 100 mg Capsule 100 mg PO DAILY RF: 0 apixaban [Eliquis] 2.5 mg Tablet 2.5 mg PO BID RF: 0 Discontinued atorvastatin 10 mg Tablet 10 mg PO DAILY RF: 0 amlodipine 5 mg Tablet 5 mg PO DAILY RF: 0 metoprolol tartrate 25 mg Tablet 25 mg PO BID RF: 0 Ambulatory Orders / Order Sets / DME: Basic Metabolic Panel (Routine) Timeframe: 1 Week Location: Determined by Patient Ordered By: Sd Valdez CT chest wo IV con (Routine) Timeframe: 3 Months Location: Determined by Patient Ordered By: Sd Valdez Referrals: Karishma Mclean MD [Physician] - See Instructions (Follow up within 1-2 weeks. ) Celestine Caldwell MD [Primary Care Provider] - See Instructions Ephraim Jerry MD [Physician] - See Instructions (1-2 weeks. ) Discharge Interventions Interventions: Discharge Planning - Case Management Last Done: 06/26/18 16:18 Status ED Status: Left Department
--- NOTE | 2018-07-04 08:55 | PQ ---
Physician Query Response Document PATIENT: Felice Macario : 1935 ADMIT DATE: 06/25/2018 8:16 AM DISCH DATE: 06/28/2018 3:04 PM RESPONDING PROVIDER #: BEV QUERY TEXT: CHF Acuity and Type Congestive Heart Failure is documented in the Medical Record. Please document the type and acuity (in cludes probable or suspected) Such as: Type: -- Systolic -- Diastolic -- Combined -- Other, please specify Your prompt response is appreciated, please do not hesitate to contact the CDI/Coding Hotline with an y questions, comments and/or concerns you may have at [phone]. [phone]. Acuity: -- Acute -- Chronic -- Acute on chronic -- Other, please specify Also please document the underlying cause of the CHF (includes probable or suspected) The patient's Clinical Indicators include: Discharge summary: Pateint's shortness of breath was believed to be due to CHF exacerbation Echo 06/26/18: Normal left ventricular size. Mild concentric left ventricular hypertrophy. The left ventricular systolic function is low normal with an estimated ejection fraction in the range of 50- 55%. Query created by: Dari Benitez on 07/02/2018 10:15 AM RESPONSE TEXT: Acute on chronic congestive heart failure - diastolic. Electronically signed by: Nito Valdez DO 07/04/2018 8:51 AM
== END 2018-06-28 15:04 | disposition home or self-care (01) | DRG 291 ==
LOC: NEPE 04:31 → NEDA 08:16 → N04 16:48
PROVIDERS: ADMIT Hospitalist; ATTEND Hospitalist
DX: R91.1 Solitary pulmonary nodule; N17.9 Acute kidney failure, unspecified; Z95.1 Presence of aortocoronary bypass graft; I50.33 Acute on chronic diastolic (congestive) heart failure; Z79.01 Long term (current) use of anticoagulants; F41.9 Anxiety disorder, unspecified; Z85.528 Personal history of other malignant neoplasm of kidney; I65.29 Occlusion and stenosis of unspecified carotid artery; I25.10 Atherosclerotic heart disease of native coronary artery without angina pectoris; Z77.22 Contact with and (suspected) exposure to environmental tobacco smoke (acute) (chronic); J98.11 Atelectasis; R00.1 Bradycardia, unspecified; E83.51 Hypocalcemia; K21.9 Gastro-esophageal reflux disease without esophagitis; Z91.14 Patient's other noncompliance with medication regimen; J18.9 Pneumonia, unspecified organism; I25.2 Old myocardial infarction; E78.5 Hyperlipidemia, unspecified; I13.0 Hypertensive heart and chronic kidney disease with heart failure and stage 1 through stage 4 chronic kidney disease, or unspecified chronic kidney disease; R74.8 Abnormal levels of other serum enzymes; I45.2 Bifascicular block; Z95.3 Presence of xenogenic heart valve; Z82.49 Family history of ischemic heart disease and other diseases of the circulatory system; I48.91 Unspecified atrial fibrillation; E78.00 Pure hypercholesterolemia, unspecified; N18.3 Chronic kidney disease, stage 3 (moderate); Z90.5 Acquired absence of kidney; I08.0 Rheumatic disorders of both mitral and aortic valves
CPT/HCPCS: 71010; 71020; 71045; 71046; 71275; 76775; 80048; 80053; 80069; 81001; 82550; 82552; 83520; 83735; 83880; 84100; 84145; 84484; 85025; 85027; 87449; 90765; 90767; 90775; 93005; 93306; 94640; 94665; 96365; 96367; 96375; 97161; 99285; J0456; J0696; J1940; J7030; J7050; Q9967